=== PATIENT | female | born 1950 | race Caucasian/White ===

== ENCOUNTER → 2016-09-17 | Outpatient (CLI) | payer MEDICARE ==
[~2016-09-17] MED LIST: PREDNISONE 20MG20 MG PO
--- NOTE | 2016-09-17 11:58 | RADIOLOGY REPORT PS360 ---
CHEST(2 VIEWS-NOT PORTABLE) HISTORY: FEVER,COPD ORDERING PHYSICIAN: Rojas Keys MD PATIENT AGE: 65 years COMPARISON: 09/18/2012 FINDINGS: There is cardiomegaly with mild pulmonary venous congestion and some prominence of the interstitium suggesting CHF. There is hyperinflation with attenuation of the peripheral pulmonary vessels consistent with COPD with chronic coarsening of the bronchovascular markings. There is increased density in both lower lobes consistent with bilateral lower lobe pneumonia with effusions. No acute bony anomalies. IMPRESSION: 1. Bilateral lower lobe pneumonia with effusions. 2. COPD with chronic peribronchial inflammatory changes. 3. Cardiomegaly with mild CHF
== END ==
LOC: RAD 11:02
DX: R50.9 Fever, unspecified (principal); J44.1 Chronic obstructive pulmonary disease with (acute) exacerbation

== ENCOUNTER → 2017-01-03 | Outpatient (CLI) | payer MEDICARE ==
[~2017-01-03] MED LIST changes: +AMLODIPINE BES10 MG PO; +KLOR-CON M1010 MEQ PO; +ROSUVASTATIN CA10 MG PO; +SPIRONOLACTONE50 MG PO
--- NOTE | 2017-01-03 12:26 | RADIOLOGY REPORT PS360 ---
CHEST(2 VIEWS-NOT PORTABLE) HISTORY: POSTERIOR CHEST PAIN,COPD,THORACIC BACK PAIN ORDERING PHYSICIAN: Rojas Keys MD PATIENT AGE: 66 years COMPARISON: 12/02/2016 FINDINGS: Borderline cardiomegaly without failure. There are emphysematous changes with prominence of the interstitium. Left upper lobe nodule once again noted unchanged. No lobar consolidation or collapse. There is mild wedging involving what appears to represent T5 of approximately 25% which has developed since the previous lateral chest radiograph. No other significant anomalies are evident. IMPRESSION: 1. Emphysema/COPD with no change in the left upper lobe nodule as previously described. 2. Mild wedge compression changes of T5 which have developed an interval. No obvious retropulsed fragments however this may be better evaluated with MRI or CT
== END ==
LOC: RAD 10:52
DX: R07.89 Other chest pain (principal); M54.6 Pain in thoracic spine; J44.9 Chronic obstructive pulmonary disease, unspecified

== ENCOUNTER 2017-02-07 13:00 | Outpatient (CLI) | payer MEDICARE ==
[~2017-02-07] VITALS: Ht 157.5 cm; Wt 54.0 kg
[2017-02-07] MEDS ORDERED: ESCITALOPRAM 2020 MG PO (13:18)
[2017-02-07] MEDS ORDERED: HYDROCODONE/APA1 TA8 PO (13:18)
[2017-02-07] MEDS ORDERED: ASPIRIN 81MG TA81 MG PO (13:20)
[2017-02-07] MEDS ORDERED: VITAMIN D1000 IU PO (13:21)
[2017-02-07] MEDS ORDERED: BREO ELLIPTA1 POW IH (13:22)
[2017-02-07] MEDS ORDERED: INCRUSE EL62.5 MCG/A IH (13:23)
[2017-02-07] MEDS ORDERED: SPIRIVA HA1 PUFF/INH IH (13:23)
[2017-02-07 13:25] LABS: GFR (ESTIMATED) 71 ML/MIN (59-)
[2017-02-07 13:50] VITALS: BP 122/63
[2017-02-07 14:05] VITALS: BP 116/70
== END 2017-02-07 14:20 | disposition home or self-care (01) ==
LOC: COP 13:00
PROVIDERS: Internal Medicine
DX: M81.0 Age-related osteoporosis without current pathological fracture (principal)
CPT/HCPCS: J3489